=== PATIENT | male | born 1985 | race Caucasian/White ===

== ENCOUNTER → 2019-03-22 | Outpatient (CLI) | payer OTHER | LOC: COL.RAD 11:15 | DX: R35.8 Other polyuria (principal) ==

== ENCOUNTER → 2021-01-29 | Outpatient (CLI) | payer OTHER | LOC: COL.RAD 14:02 | DX: M41.85 Other forms of scoliosis, thoracolumbar region (principal) ==

== ENCOUNTER 2021-03-06 10:15 | Outpatient (RCR) | payer OTHER | END 2021-03-07 | disposition home or self-care (01) | LOC: PT.GENESIS | DX: M41.9 Scoliosis, unspecified (principal) ==

== ENCOUNTER 2022-11-27 10:00 | Outpatient (RCR) | payer OTHER | END 2022-12-05 | disposition home or self-care (01) | LOC: WSOT | DX: M25.531 Pain in right wrist (principal) ==

== ENCOUNTER 2023-11-05 09:30 | Outpatient (RCR) | payer OTHER | END 2023-11-06 | disposition home or self-care (01) | LOC: PT.GENESIS | DX: M47.816 Spondylosis without myelopathy or radiculopathy, lumbar region (principal); M41.25 Other idiopathic scoliosis, thoracolumbar region ==